=== PATIENT | female | born 1980 | race Caucasian/White ===

== ENCOUNTER 2017-12-17 08:35 | Emergency (ER) | payer MEDICAID ==
[~2017-12-17] VITALS: Ht 154.9 cm; Wt 71.7 kg
[~2017-12-17 08:35] MED LIST: ALMACONE LIQUI355 ML PO; CHLORHEXIDINE; COLACE100 MG PO; DEPAKOTE 250MG250 M1 PO; DEPAKOTE ER500 MG PO; DEPAKOTE500 MG PO; FLONASE 0.05%50 MCG NASAL; IBUPROFEN 800800 M1; IBUPROFEN 800800 M1 PO; LOXAPINE10 MG PO; LOXAPINE5 MG; LOXAPINE5 MG PO; MAXITROL EYE DRO5 ML OTIC; MELADOX3 MG PO; MOBIC15 MG PO; MYLANTA GAS MA125 MG; NEURONTIN 400M400 M2 PO; NORCO 5-325 TA1 EAC1 PO; NORCO 5-325 TA1 EACH PO; POLYMYXIN B/TMP10 ML OPHTHALMIC; SIMVASTATIN20 MG PO; TOPAMAX 100 MG100 MG PO; TOPAMAX50 MG; TOPAMAX50 MG PO; TRAZODONE HCL100 MG PO; TRAZODONE HCL50 MG PO; TYLENOL EX-STR500 M2; TYLENOL EXTRA500 MG PO; ZOCOR20 MG PO; ZOFRAN ODT4 MG PO; ZOFRAN4 MG PO; ZYRTEC10 M5 PO
[2017-12-17 09:24] LABS: ABSOLUTE MONOCYTES 1.8 thou/uL (0.0-1.2); ABSOLUTE NEUTROPHILS 11.8 thou/uL (1.6-8.1); BASOPHILS 0.1 %; HEMATOCRIT 37.7 % (37.0-47.0); HEMOGLOBIN 12.8 gm/dL (12.0-15.0); LYMPHOCYTES 12.8 %; MCH 33.2 pg (26.0-34.0); MCHC 33.9 g/dL (28.0-37.0); MCV 97.8 fL (80.0-100.0); MONOCYTES 11.4 %; MPV 8.5 fl. (7.2-11.1); NUCLEATED RBCS 0 /100WBC; PLATELET COUNT* 231 thou/uL (150-400); POLYS 75.7 %; RBC 3.86 mil/uL (4.20-5.00); RDW-CV 12.9 % (10.5-14.5); WBC 15.5 thou/uL (4.0-11.0)
[2017-12-17 09:32] LABS: ANION GAP 11 mmol/L (7-16); BUN 22 mg/dL (7-18); CALCIUM 8.7 mg/dL (8.5-10.1); CHLORIDE 107 mmol/L (98-107); CO2 22 mmol/L (21-32); GLUCOSE 152 mg/dL (70-99); POTASSIUM 4.4 mmol/L (3.5-5.1); SODIUM 140 mmol/L (136-145)
[2017-12-17 09:35] LABS: URINE BILIRUBIN NEGATIVE (Negative); URINE BLOOD 2+ (Negative); URINE CLARITY SL CLOUDY; URINE COLOR YELLOW; URINE GLUCOSE-RANDOM NEGATIVE (Negative); URINE KETONES TRACE (Negative); URINE LEUKOCYTES-REFLEX NEGATIVE (Negative); URINE NITRITE-REFLEX NEGATIVE (Negative); URINE PROTEIN TRACE (Negative); URINE SPECIFIC GRAVITY 1.015 (1.005-1.030); URINE UROBILINOGEN 0.2 E.U./dl (0.2-1.0)
[2017-12-17 09:39] LABS: ALBUMIN 3.4 g/dL (3.4-5.0); ALKALINE PHOSPHATASE 69 U/L (46-116); LIPASE 73 U/L (73-393); SGOT 18 U/L (15-37); SGPT 24 U/L (30-65); TOTAL BILIRUBIN 0.2 mg/dL (<0.1-1.0); TOTAL PROTEIN 7.2 g/dL (6.4-8.2); TROPONIN-I LEVEL <0.06 ng/mL (<0.06)
[2017-12-17 09:41] LABS: AMORPHOUS PHOSPHATES Moderate /LPF (None Seen); BACTERIA-REFLEX None Seen /HPF (None Seen); CASTS None Seen /LPF (None Seen); SQUAMOUS 0-3 Few /LPF (0-3); URINE WBC-REFLEX 0-5 Rare /HPF (0-5)
[2017-12-17 09:42] LABS: URINE RBC 3-10 Few /HPF (0-2)
[2017-12-17] MEDS ORDERED: CIPROFLOXACIN500 M1 PO (10:38)
[2017-12-17] MEDS ORDERED: NORCO 5-325 TA1 EACH PO (10:38)
[2017-12-17] MEDS ORDERED: FLOMAX0.4 MG PO (10:38)
[2017-12-17] MEDS ORDERED: IBUPROFEN 800800 MG PO (10:38)
[2017-12-17 10:49] VITALS: BP 134/95
== END 2017-12-17 10:52 | disposition home or self-care (01) ==
LOC: M.ERS 08:35
PROVIDERS: Family Medicine
DX: N20.0 Calculus of kidney (principal); F31.9 Bipolar disorder, unspecified; E78.00 Pure hypercholesterolemia, unspecified

== ENCOUNTER → 2017-12-30 | Outpatient (CLI) | payer MEDICAID ==
[~2017-12-30] MED LIST changes: +CIPROFLOXACIN500 M1 PO; +FLOMAX0.4 MG PO; +IBUPROFEN 800800 MG PO
[2017-12-30 10:14] LABS: CHOLESTEROL 155 mg/dL (<200); HDL CHOLESTEROL 43 mg/dL (>40); LDL CHOLESTEROL 92 mg/dL (<100); SERUM ASSESSMENT Clear; TC:HDL 3.6 Ratio (Not establshd); TRIGLYCERIDE 103 mg/dL (<150); VLDL 21 mg/dL (<40)
[2017-12-31 02:07] LABS: GLYCOHEMOGLOBIN (HGB A1C) 5.5 % (4.8-5.6)
== END ==
LOC: M.LAB 09:20
DX: F84.0 Autistic disorder (principal)

== ENCOUNTER → 2018-09-15 | Outpatient (CLI) | payer MEDICAID | LOC: M.LAB 08:50 | DX: E78.5 Hyperlipidemia, unspecified (principal); Z79.899 Other long term (current) drug therapy ==

== ENCOUNTER → 2019-01-25 | Outpatient (CLI) | payer MEDICAID ==
[2019-01-25 09:30] LABS: ABSOLUTE LYMPHOCYTES 2.8 thou/uL (0.8-5.3); ABSOLUTE MONOCYTES 0.7 thou/uL (0.0-1.2); BASOPHILS 0.2 %; EOSINOPHILS 0.2 %; HEMATOCRIT 39.1 % (37.0-47.0); HEMOGLOBIN 13.2 gm/dL (12.0-15.0); LYMPHOCYTES 36.9 %; MCHC 33.7 g/dL (28.0-37.0); MCV 101.1 fL (80.0-100.0); MPV 9.3 fl. (7.2-11.1); NUCLEATED RBCS 0 /100WBC; PLATELET COUNT* 168 thou/uL (150-400); POLYS 52.7 %; RBC 3.87 mil/uL (4.20-5.00); RDW-CV 13.2 % (10.5-14.5); WBC 7.5 thou/uL (4.0-11.0)
[2019-01-25 09:57] LABS: ALBUMIN 3.4 g/dL (3.4-5.0); ALKALINE PHOSPHATASE 67 U/L (46-116); ANION GAP 10 mmol/L (7-16); BUN 29 mg/dL (7-18); CALCIUM 8.6 mg/dL (8.5-10.1); CHLORIDE 108 mmol/L (98-107); CHOLESTEROL 175 mg/dL (<200); CO2 22 mmol/L (21-32); CREATININE 0.6 mg/dL (0.6-1.3); GLUCOSE 101 mg/dL (70-99); HDL CHOLESTEROL 41 mg/dL (>40); LDL CHOLESTEROL 98 mg/dL (<100); POTASSIUM 4.1 mmol/L (3.5-5.1); SGOT 18 U/L (15-37); SGPT 20 U/L (30-65); SODIUM 140 mmol/L (136-145); TC:HDL 4.3 Ratio (Not establshd); TOTAL BILIRUBIN 0.3 mg/dL (<0.1-1.0); TOTAL PROTEIN 7.3 g/dL (6.4-8.2); TRIGLYCERIDE 183 mg/dL (<150); VLDL 37 mg/dL (<40)
[2019-01-25 09:58] LABS: SERUM ASSESSMENT Clear
== END ==
LOC: M.LAB 09:06
DX: Z51.81 Encounter for therapeutic drug level monitoring (principal); Z13.6 Encounter for screening for cardiovascular disorders

== ENCOUNTER 2019-02-17 19:40 | Emergency (ER) | payer MEDICARE, MEDICAID ==
[~2019-02-17] VITALS: Ht 157.5 cm; Wt 64.0 kg
[2019-02-17 20:52] VITALS: BP 104/82
== END 2019-02-17 20:53 | disposition home or self-care (01) ==
LOC: M.ERS 19:40
DX: S61.412A Laceration without foreign body of left hand, initial encounter (principal); F31.9 Bipolar disorder, unspecified; E78.00 Pure hypercholesterolemia, unspecified; M06.9 Rheumatoid arthritis, unspecified; Z87.442 Personal history of urinary calculi; W18.2XXA Fall in (into) shower or empty bathtub, initial encounter; Y92.002 Bathroom of unspecified non-institutional (private) residence as the place of occurrence of the external cause; Y93.E1 Activity, personal bathing and showering; Y99.8 Other external cause status

== ENCOUNTER 2019-04-28 14:28 | Emergency (ER) | payer MEDICARE, MEDICAID ==
[~2019-04-28] VITALS: Ht 160 cm; Wt 63.5 kg
[~2019-04-28 14:28] MED LIST changes: +DEPAKOTE ER500 M1 PO; -DEPAKOTE ER500 MG PO
[2019-04-28 15:14] LABS: URINE BLOOD NEGATIVE (Negative); URINE CLARITY CLEAR; URINE COLOR YELLOW; URINE GLUCOSE-RANDOM NEGATIVE (Negative); URINE KETONES TRACE (Negative); URINE NITRITE-REFLEX NEGATIVE (Negative); URINE PROTEIN 1+ (Negative); URINE SPECIFIC GRAVITY >= 1.030 (1.005-1.030); URINE UROBILINOGEN 0.2 E.U./dl (0.2-1.0)
[2019-04-28 15:18] LABS: ICTOTEST (BILI CONFIRMATORY) Negative (Negative); URINE BILIRUBIN 1+ (Negative); URINE LEUKOCYTES-REFLEX 2+ (Negative)
[2019-04-28 15:30] LABS: AMP/METHAMP Negative (Negative); BARBITURATES Negative (Negative); BENZODIAZEPINES Negative (Negative); COCAINE Negative (Negative); METHADONE Negative (Negative); OPIATES Negative (Negative); PCP Negative (Negative); THC Negative (Negative)
[2019-04-28 15:45] LABS: CRYSTALS None Seen /LPF (None Seen); HYALINE CASTS 0-3 Few /LPF (None Seen); MUCUS 4-6 Moderate strn/LPF (None Seen); SQUAMOUS >10 Many /LPF (0-3)
[2019-04-28 15:46] LABS: ABSOLUTE EOSINOPHILS 0.1 thou/uL (0.0-0.7); ABSOLUTE LYMPHOCYTES 2.7 thou/uL (0.8-5.3); ABSOLUTE MONOCYTES 1.3 thou/uL (0.0-1.2); ABSOLUTE NEUTROPHILS 9.2 thou/uL (1.6-8.1); BASOPHILS 0.3 %; EOSINOPHILS 0.5 %; HEMATOCRIT 36.5 % (37.0-47.0); HEMOGLOBIN 12.4 gm/dL (12.0-15.0); LYMPHOCYTES 19.9 %; MCV 100.2 fL (80.0-100.0); MONOCYTES 9.9 %; MPV 9.2 fl. (7.2-11.1); NUCLEATED RBCS 0 /100WBC; PLATELET COUNT* 187 thou/uL (150-400); POLYS 69.4 %; RBC 3.64 mil/uL (4.20-5.00); RDW-CV 13.2 % (10.5-14.5); WBC 13.3 thou/uL (4.0-11.0)
[2019-04-28 15:46] LABS: URINE RBC None Seen /HPF (0-2); URINE WBC-REFLEX 6-15 Few /HPF (0-5)
[2019-04-28 16:12] LABS: ALCOHOL < 10 mg/dL (<10); CALCIUM 9.6 mg/dL (8.5-10.1); CREATININE 0.7 mg/dL (0.6-1.3); POTASSIUM 4.1 mmol/L (3.5-5.1)
[2019-04-28 16:18] LABS: ALBUMIN 3.4 g/dL (3.4-5.0); TOTAL BILIRUBIN 0.3 mg/dL (<0.1-1.0); TOTAL PROTEIN 7.3 g/dL (6.4-8.2)
[2019-04-28 16:19] LABS: TROPONIN-I LEVEL <0.06 ng/mL (<0.06)
[2019-04-28 16:23] LABS: LITHIUM 1.4 mEq/L (0.6-1.2); VALPROIC ACID (DEPAKENE) 90.7 mcg/mL (50-100)
[2019-04-28] MEDS ORDERED: BIOTENE1000 ML MUCOUS MEM (16:30)
[2019-04-28] MEDS ORDERED: SEROQUEL 50 MG50 MG PO (16:31)
[2019-04-28] MEDS ORDERED: LITHIUM CARBON300 M3 PO (16:33)
[2019-04-28] MEDS ORDERED: ATIVAN1 MG PO (16:33)
[2019-04-28] MEDS ORDERED: SEROQUEL XR 20200 MG PO (16:34)
[2019-04-28] MEDS ORDERED: KEFLEX500 M1 PO (16:40)
[2019-04-28 17:31] VITALS: BP 115/74
--- NOTE | 2019-04-29 17:11 | EKG ---
[place] [address] ELECTROCARDIOGRAM REPORT Name: EVELINA ANAYA Room: [facility]#: [id number] Admission: 04/28/19 Attend Phys: Discharge: 04/28/19 Date of : 84 Report #: [id number] THIS REPORT FOR: //name// [facility] ED Test Date: 2019-04-28 Test Time: 16:16:10 Pat Name: EVELINA DAHLLACIEDom Department: Room: Gender: F Committee Member: : 1980 Requested By: Leta Sparks Order Number: [id number] MD: Russ Seaman Measurements Intervals [place] Rate: 86 P: 54 NE: 177 QRS: 61 QRSD: 70 T: QT: 454 QTc: 543 Interpretive Statements Sinus rhythm Nonspecific T abnormalities, diffuse leads Prolonged QT interval No previous ECG available for comparison Electronically Signed On 04-29-2019 17:11:14 CDT by Russ Seaman [email or web address] <ELECTRONICALLY SIGNED> By: Russ Seaman MD, [facility] 04/29/19 1711 1616 1616 Russ Seaman MD, FAC /EPI
== END 2019-04-28 17:32 | disposition home or self-care (01) ==
LOC: M.ERS 14:28
PROVIDERS: Nurse Practitioner Family
DX: N39.0 Urinary tract infection, site not specified (principal); R41.82 Altered mental status, unspecified; R79.89 Other specified abnormal findings of blood chemistry; F31.9 Bipolar disorder, unspecified; E78.00 Pure hypercholesterolemia, unspecified; M06.9 Rheumatoid arthritis, unspecified; M41.9 Scoliosis, unspecified; Z87.442 Personal history of urinary calculi

== ENCOUNTER → 2019-05-06 | Outpatient (CLI) | payer MEDICARE, MEDICAID ==
[~2019-05-06] MED LIST changes: +ATIVAN1 MG PO; +BIOTENE1000 ML MUCOUS MEM; +KEFLEX500 M1 PO; +LITHIUM CARBON300 M3 PO; +SEROQUEL 50 MG50 MG PO; +SEROQUEL XR 20200 MG PO
[2019-05-06 10:19] LABS: ALBUMIN 3.6 g/dL (3.4-5.0); CALCIUM 9.5 mg/dL (8.5-10.1); CREATININE 0.7 mg/dL (0.6-1.3); POTASSIUM 3.8 mmol/L (3.5-5.1); TOTAL BILIRUBIN 0.3 mg/dL (<0.1-1.0); TOTAL PROTEIN 7.6 g/dL (6.4-8.2)
[2019-05-06 10:58] LABS: LITHIUM 0.7 mEq/L (0.6-1.2); VALPROIC ACID (DEPAKENE) 106.3 mcg/mL (50-100)
== END ==
LOC: M.LAB 09:32
DX: F39 Unspecified mood [affective] disorder (principal); F84.0 Autistic disorder

== ENCOUNTER → 2019-08-20 | Outpatient (CLI) | payer MEDICARE, MEDICAID ==
[~2019-08-20] MED LIST changes: +ALMACONE LIQUI355 ML PER TUBE
== END | disposition home or self-care (01) ==
LOC: M.RAD 08-18 09:00
DX: M51.27 Other intervertebral disc displacement, lumbosacral region (principal); M41.85 Other forms of scoliosis, thoracolumbar region; Z87.442 Personal history of urinary calculi; Z98.890 Other specified postprocedural states; Z79.899 Other long term (current) drug therapy

== ENCOUNTER → 2019-10-05 | Outpatient (CLI) | payer MEDICARE, MEDICAID | LOC: M.LAB 09:20 | DX: F84.0 Autistic disorder (principal); F42.9 Obsessive-compulsive disorder, unspecified; F72 Severe intellectual disabilities ==

== ENCOUNTER → 2020-01-21 | Outpatient (CLI) | payer MEDICARE, MEDICAID ==
[2020-01-21 09:50] LABS: ABSOLUTE LYMPHOCYTES 2.8 thou/uL (0.8-5.3); ABSOLUTE MONOCYTES 0.9 thou/uL (0.0-1.2); ABSOLUTE NEUTROPHILS 4.8 thou/uL (1.6-8.1); BASOPHILS 0.3 %; EOSINOPHILS 0.5 %; HEMATOCRIT 36.9 % (37.0-47.0); HEMOGLOBIN 12.8 gm/dL (12.0-15.0); MCH 34.3 pg (26.0-34.0); MCHC 34.7 g/dL (28.0-37.0); MCV 98.9 fL (80.0-100.0); MONOCYTES 10.2 %; MPV 8.6 fl. (7.2-11.1); NUCLEATED RBCS 0 /100WBC; PLATELET COUNT* 254 thou/uL (150-400); RBC 3.73 mil/uL (4.20-5.00); WBC 8.6 thou/uL (4.0-11.0)
[2020-01-21 10:03] LABS: ALBUMIN 3.5 g/dL (3.4-5.0); ALKALINE PHOSPHATASE 67 U/L (46-116); ANION GAP 7 mmol/L (7-16); BUN 10 mg/dL (7-18); CALCIUM 8.8 mg/dL (8.5-10.1); CHLORIDE 106 mmol/L (98-107); CHOLESTEROL 147 mg/dL (<200); CO2 29 mmol/L (21-32); CREATININE 0.7 mg/dL (0.6-1.3); GLUCOSE 104 mg/dL (70-99); HDL CHOLESTEROL 38 mg/dL (>40); LDL CHOLESTEROL 88 mg/dL (<100); POTASSIUM 4.1 mmol/L (3.5-5.1); SGOT 14 U/L (15-37); SGPT 23 U/L (30-65); SODIUM 142 mmol/L (136-145); TC:HDL 3.9 Ratio (Not establshd); TOTAL BILIRUBIN 0.4 mg/dL (<0.1-1.0); TOTAL PROTEIN 7.7 g/dL (6.4-8.2); TRIGLYCERIDE 105 mg/dL (<150); VLDL 21 mg/dL (<40)
[2020-01-21 10:04] LABS: SERUM ASSESSMENT Clear
[2020-01-21 10:21] LABS: LITHIUM 0.5 mEq/L (0.6-1.2); VALPROIC ACID (DEPAKENE) 94.9 mcg/mL (50-100)
== END ==
LOC: M.LAB 09:25
PROVIDERS: Psychiatry & Neurology Psychiatry
DX: Z51.81 Encounter for therapeutic drug level monitoring (principal); Z13.6 Encounter for screening for cardiovascular disorders

== ENCOUNTER 2020-03-17 19:09 | Emergency (ER) | payer MEDICARE, MEDICAID ==
[~2020-03-17] VITALS: Ht 144.8 cm; Wt 63.5 kg
[2020-03-17 20:40] VITALS: BP 135/89
== END 2020-03-17 20:41 | disposition home or self-care (01) ==
LOC: M.ERS 19:09
DX: S93.491A Sprain of other ligament of right ankle, initial encounter (principal); E78.00 Pure hypercholesterolemia, unspecified; F31.9 Bipolar disorder, unspecified; F84.0 Autistic disorder; Z87.442 Personal history of urinary calculi; W18.39XA Other fall on same level, initial encounter; Y93.89 Activity, other specified; Y92.098 Other place in other non-institutional residence as the place of occurrence of the external cause; Y99.8 Other external cause status

== ENCOUNTER 2020-08-05 20:53 | Emergency (ER) | payer MEDICARE, MEDICAID ==
[~2020-08-05] VITALS: Ht 149.9 cm; Wt 68.0 kg
[2020-08-05] MEDS ORDERED: ATIVAN2 MG PO (21:14)
[2020-08-05 21:44] LABS: URINE BLOOD 3+ (Negative); URINE COLOR ORANGE; URINE GLUCOSE-RANDOM NEGATIVE (Negative); URINE KETONES TRACE (Negative); URINE NITRITE-REFLEX NEGATIVE (Negative); URINE PROTEIN 1+ (Negative); URINE UROBILINOGEN 0.2 E.U./dl (0.2-1.0)
[2020-08-05 21:46] LABS: ICTOTEST (BILI CONFIRMATORY) Negative (Negative); URINE BILIRUBIN 1+ (Negative); URINE CLARITY CLOUDY; URINE LEUKOCYTES-REFLEX 2+ (Negative)
[2020-08-05 21:47] LABS: BACTERIA-REFLEX >30 Many /HPF (None Seen); CASTS None Seen /LPF (None Seen); MUCUS 4-6 Moderate strn/LPF (None Seen); SQUAMOUS 0-3 Few /LPF (0-3); TRANSITIONAL EPITHEL CELL 0-3 Few /LPF (None Seen); URINE RBC >20 Many /HPF (0-2); URINE WBC-REFLEX >25 Many /HPF (0-5); WBC CLUMPS Few (None Seen)
[2020-08-05 21:48] LABS: CRYSTALS None Seen /LPF (None Seen)
[2020-08-05] MEDS ORDERED: MACROBID 100 M100 M1 PO (23:32)
[2020-08-05 23:58] VITALS: BP 140/75
== END 2020-08-05 23:58 | disposition home or self-care (01) ==
LOC: M.ERS 20:53
PROVIDERS: Personal Emergency Response Attendant
DX: N39.0 Urinary tract infection, site not specified (principal); E78.00 Pure hypercholesterolemia, unspecified; M41.9 Scoliosis, unspecified; Z87.442 Personal history of urinary calculi

== ENCOUNTER 2020-10-17 09:22 | Emergency (ER) | payer MEDICARE, MEDICAID ==
[~2020-10-17] VITALS: Ht 157.5 cm; Wt 90.7 kg
[~2020-10-17 09:22] MED LIST changes: +ATIVAN2 MG PO; +MACROBID 100 M100 M1 PO
[2020-10-17] MEDS ORDERED: DEPO-SUBQ104 MG/0.6 IM (09:42)
[2020-10-17 09:48] LABS: ABSOLUTE BASOPHILS 0.1 thou/uL (0.0-0.2); ABSOLUTE LYMPHOCYTES 2.7 thou/uL (0.8-5.3); ABSOLUTE MONOCYTES 1.3 thou/uL (0.0-1.2); ABSOLUTE NEUTROPHILS 7.3 thou/uL (1.6-8.1); BASOPHILS 0.6 %; HEMATOCRIT 38.6 % (37.0-47.0); HEMOGLOBIN 13.1 gm/dL (12.0-15.0); LYMPHOCYTES 23.8 %; MCH 33.3 pg (26.0-34.0); MCHC 33.9 g/dL (28.0-37.0); MCV 98.5 fL (80.0-100.0); MONOCYTES 11.4 %; MPV 8.4 fl. (7.2-11.1); NUCLEATED RBCS 0 /100WBC; PLATELET COUNT* 231 thou/uL (150-400); POLYS 64.2 %; RBC 3.92 mil/uL (4.20-5.00); WBC 11.4 thou/uL (4.0-11.0)
[2020-10-17 09:56] LABS: CALCIUM 9.2 mg/dL (8.5-10.1); CREATININE 0.8 mg/dL (0.6-1.3); POTASSIUM 3.8 mmol/L (3.5-5.1)
[2020-10-17 10:00] LABS: ALBUMIN 3.5 g/dL (3.4-5.0); TOTAL BILIRUBIN 0.4 mg/dL (<0.1-1.0)
[2020-10-17] MEDS ORDERED: PROVERA10 MG PO (10:11)
[2020-10-17 10:22] VITALS: BP 151/71
== END 2020-10-17 10:23 | disposition home or self-care (01) ==
LOC: M.ERS 09:22
PROVIDERS: Family Medicine
DX: N93.8 Other specified abnormal uterine and vaginal bleeding (principal); E78.00 Pure hypercholesterolemia, unspecified; Z87.442 Personal history of urinary calculi; Z79.899 Other long term (current) drug therapy

== ENCOUNTER 2020-10-21 16:12 | Emergency (ER) | payer MEDICARE, MEDICAID ==
[~2020-10-21] VITALS: Ht 144.8 cm; Wt 63.5 kg
[~2020-10-21 16:12] MED LIST changes: +DEPO-SUBQ104 MG/0.6 IM; +PROVERA10 MG PO
[2020-10-21 16:43] LABS: URINE BILIRUBIN NEGATIVE (Negative); URINE BLOOD 2+ (Negative); URINE CLARITY SL CLOUDY; URINE COLOR YELLOW; URINE GLUCOSE-RANDOM NEGATIVE (Negative); URINE KETONES NEGATIVE (Negative); URINE LEUKOCYTES-REFLEX NEGATIVE (Negative); URINE NITRITE-REFLEX NEGATIVE (Negative); URINE PROTEIN NEGATIVE (Negative); URINE UROBILINOGEN 0.2 E.U./dl (0.2-1.0)
[2020-10-21 16:49] LABS: MUCUS 0-3 Light strn/LPF (None Seen); SQUAMOUS >10 Many /LPF (0-3)
[2020-10-21 16:50] LABS: BACTERIA-REFLEX >30 Many /HPF (None Seen); CASTS None Seen /LPF (None Seen); CRYSTALS None Seen /LPF (None Seen); URINE RBC 3-10 Few /HPF (0-2)
[2020-10-21 16:51] LABS: URINE WBC-REFLEX 0-5 Rare /HPF (0-5)
[2020-10-21] MEDS ORDERED: KEFLEX500 M1 PO (16:58)
[2020-10-21 17:06] VITALS: BP 103/77
== END 2020-10-21 17:11 | disposition home or self-care (01) ==
LOC: M.ERS 16:12
PROVIDERS: Emergency Medicine Emergency Medical Services
DX: N39.0 Urinary tract infection, site not specified (principal); E78.00 Pure hypercholesterolemia, unspecified; Z87.442 Personal history of urinary calculi; Z79.899 Other long term (current) drug therapy

== ENCOUNTER → 2021-01-01 | Outpatient (CLI) | payer MEDICARE, MEDICAID | LOC: M.LAB 09:26 | PROVIDERS: ATTEND Podiatrist Foot Surgery | DX: Z01.812 Encounter for preprocedural laboratory examination (principal); Z20.822 Contact with and (suspected) exposure to COVID-19 ==

== ENCOUNTER 2021-01-07 10:59 | Emergency (ER) | payer MEDICARE, MEDICAID ==
[~2021-01-07] VITALS: Ht 144.8 cm; Wt 65.8 kg
[2021-01-07] MEDS ORDERED: ALMACONE-2 LIQ355 ML PO (11:19)
[2021-01-07] MEDS ORDERED: FLONASE 0.05%50 MCG NARES (11:19)
[2021-01-07 11:23] LABS: URINE BILIRUBIN NEGATIVE (Negative); URINE BLOOD NEGATIVE (Negative); URINE CLARITY CLEAR; URINE COLOR YELLOW; URINE GLUCOSE-RANDOM NEGATIVE (Negative); URINE KETONES NEGATIVE (Negative); URINE LEUKOCYTES-REFLEX NEGATIVE (Negative); URINE NITRITE-REFLEX NEGATIVE (Negative); URINE PROTEIN NEGATIVE (Negative); URINE UROBILINOGEN 0.2 E.U./dl (0.2-1.0)
[2021-01-07 11:52] LABS: ABSOLUTE LYMPHOCYTES 2.9 thou/uL (0.8-5.3); ABSOLUTE MONOCYTES 1.1 thou/uL (0.0-1.2); ABSOLUTE NEUTROPHILS 5.6 thou/uL (1.6-8.1); BASOPHILS 0.2 %; EOSINOPHILS 0.1 %; HEMOGLOBIN 12.8 gm/dL (12.0-15.0); LYMPHOCYTES 30.4 %; MCH 33.5 pg (26.0-34.0); MCHC 33.6 g/dL (28.0-37.0); MCV 99.9 fL (80.0-100.0); MONOCYTES 11.6 %; MPV 9.1 fl. (7.2-11.1); NUCLEATED RBCS 0 /100WBC; PLATELET COUNT* 234 thou/uL (150-400); POLYS 57.7 %; WBC 9.6 thou/uL (4.0-11.0)
[2021-01-07 12:02] LABS: CALCIUM 9.6 mg/dL (8.5-10.1); CREATININE 0.7 mg/dL (0.6-1.3); POTASSIUM 4.1 mmol/L (3.5-5.1)
[2021-01-07 12:12] LABS: ALBUMIN 3.5 g/dL (3.4-5.0); TOTAL BILIRUBIN 0.2 mg/dL (<0.1-1.0); TOTAL PROTEIN 7.3 g/dL (6.4-8.2)
[2021-01-07 12:33] VITALS: BP 129/75
== END 2021-01-07 12:33 | disposition home or self-care (01) ==
LOC: M.ERS 10:59
PROVIDERS: Emergency Medicine Emergency Medical Services
DX: R35.0 Frequency of micturition (principal); E78.00 Pure hypercholesterolemia, unspecified; M41.9 Scoliosis, unspecified; Z87.442 Personal history of urinary calculi

== ENCOUNTER → 2021-01-15 | Outpatient (CLI) | payer MEDICARE, MEDICAID ==
[~2021-01-15] MED LIST changes: +ALMACONE-2 LIQ355 ML PO; +FLONASE 0.05%50 MCG NARES
[2021-01-15 11:37] LABS: ABSOLUTE MONOCYTES 1.5 thou/uL (0.0-1.2); ABSOLUTE NEUTROPHILS 9.6 thou/uL (1.6-8.1); BASOPHILS 0.1 %; HEMATOCRIT 38.9 % (37.0-47.0); HEMOGLOBIN 12.9 gm/dL (12.0-15.0); LYMPHOCYTES 21.2 %; MCH 33.2 pg (26.0-34.0); MCHC 33.1 g/dL (28.0-37.0); MCV 100.3 fL (80.0-100.0); MONOCYTES 10.3 %; MPV 9.1 fl. (7.2-11.1); NUCLEATED RBCS 0 /100WBC; PLATELET COUNT* 278 thou/uL (150-400); POLYS 68.4 %; RBC 3.87 mil/uL (4.20-5.00); RDW-CV 13.2 % (10.5-14.5); WBC 14.1 thou/uL (4.0-11.0)
[2021-01-15 11:40] LABS: CALCIUM 9.7 mg/dL (8.5-10.1); CREATININE 0.8 mg/dL (0.6-1.3); POTASSIUM 4.3 mmol/L (3.5-5.1)
== END ==
LOC: M.LAB 11:07
DX: F84.0 Autistic disorder (principal); F31.9 Bipolar disorder, unspecified

== ENCOUNTER 2021-01-30 11:52 | Emergency (ER) | payer MEDICARE, MEDICAID ==
[~2021-01-30] VITALS: Ht 144.8 cm; Wt 65.8 kg
[2021-01-30 12:10] LABS: ABSOLUTE LYMPHOCYTES 2.1 thou/uL (0.8-5.3); ABSOLUTE MONOCYTES 0.9 thou/uL (0.0-1.2); ABSOLUTE NEUTROPHILS 4.8 thou/uL (1.6-8.1); BASOPHILS 0.3 %; HEMATOCRIT 36.9 % (37.0-47.0); HEMOGLOBIN 12.4 gm/dL (12.0-15.0); LYMPHOCYTES 26.5 %; MCHC 33.8 g/dL (28.0-37.0); MCV 100.8 fL (80.0-100.0); MONOCYTES 11.6 %; NUCLEATED RBCS 0 /100WBC; PLATELET COUNT* 203 thou/uL (150-400); POLYS 61.6 %; RBC 3.66 mil/uL (4.20-5.00); RDW-CV 13.4 % (10.5-14.5); WBC 7.8 thou/uL (4.0-11.0)
[2021-01-30 12:18] LABS: CREATININE 0.7 mg/dL (0.6-1.3); POTASSIUM 4.1 mmol/L (3.5-5.1)
[2021-01-30 12:18] LABS: URINE BILIRUBIN NEGATIVE (Negative); URINE BLOOD TRACE (Negative); URINE CLARITY CLEAR; URINE COLOR YELLOW; URINE GLUCOSE-RANDOM NEGATIVE (Negative); URINE KETONES NEGATIVE (Negative); URINE LEUKOCYTES-REFLEX NEGATIVE (Negative); URINE NITRITE-REFLEX NEGATIVE (Negative); URINE PROTEIN NEGATIVE (Negative); URINE UROBILINOGEN 0.2 E.U./dl (0.2-1.0)
[2021-01-30 12:23] LABS: AMP/METHAMP Negative (Negative); BARBITURATES Negative (Negative); BENZODIAZEPINES Negative (Negative); COCAINE Negative (Negative); METHADONE Negative (Negative); OPIATES Negative (Negative); PCP Negative (Negative); THC Negative (Negative)
[2021-01-30 12:23] LABS: ALBUMIN 3.4 g/dL (3.4-5.0); TOTAL BILIRUBIN 0.3 mg/dL (<0.1-1.0); TOTAL PROTEIN 7.3 g/dL (6.4-8.2)
[2021-01-30 12:37] LABS: SALICYLATE < 2.8 mg/dL (2.8-20.0)
[2021-01-30 12:38] LABS: ACETAMINOPHEN < 2 ug/mL (10-30); ALCOHOL < 10 mg/dL (<10)
[2021-01-30] MEDS ORDERED: GEODON20 MG PO (15:10)
[2021-01-30] MEDS ORDERED: ATIVAN1 M1 PO (15:10)
[2021-01-30 15:33] VITALS: BP 131/63
== END 2021-01-30 15:35 | disposition home or self-care (01) ==
LOC: M.ERS 11:52
PROVIDERS: Nurse Practitioner Family
DX: F63.81 Intermittent explosive disorder (principal); E78.00 Pure hypercholesterolemia, unspecified; M41.9 Scoliosis, unspecified; Z87.442 Personal history of urinary calculi

== ENCOUNTER → 2021-03-26 | Outpatient (CLI) | payer MEDICARE, MEDICAID ==
[~2021-03-26] MED LIST changes: +ATIVAN1 M1 PO; +GEODON20 MG PO
[2021-03-26 08:18] LABS: CALCIUM 9.2 mg/dL (8.5-10.1); CREATININE 0.5 mg/dL (0.6-1.3); MAGNESIUM 2.2 mg/dL (1.8-2.4); POTASSIUM 3.9 mmol/L (3.5-5.1)
== END ==
LOC: M.LAB 07:50
PROVIDERS: ATTEND Internal Medicine Critical Care Medicine
DX: R60.0 Localized edema (principal)

== ENCOUNTER 2021-07-04 12:10 | Inpatient (IN) | payer MEDICARE, MEDICAID ==
[~2021-07-04] VITALS: Ht 149.9 cm; Wt 49.4 kg
[2021-07-04 12:40] VITALS: BP 125/97
[2021-07-04 13:08] LABS: URINE BILIRUBIN NEGATIVE (Negative); URINE BLOOD NEGATIVE (Negative); URINE CLARITY CLEAR; URINE COLOR YELLOW; URINE GLUCOSE-RANDOM NEGATIVE (Negative); URINE KETONES NEGATIVE (Negative); URINE NITRITE-REFLEX NEGATIVE (Negative); URINE PROTEIN NEGATIVE (Negative)
[2021-07-04 13:09] LABS: URINE LEUKOCYTES-REFLEX 2+ (Negative)
[2021-07-04] MEDS ORDERED: SEROQUEL 50 MG50 M1 PO (13:09)
[2021-07-04] MEDS ORDERED: BENZTROPINE MES1 MG PO (13:10)
[2021-07-04] MEDS ORDERED: LITHIUM CARBON300 M6 PO (13:11)
[2021-07-04] MEDS ORDERED: LAMOTRIGINE250 MG PO (13:12)
[2021-07-04] MEDS ORDERED: LOPERAMIDE 2 MG2 M1 PO (13:13)
[2021-07-04] MEDS ORDERED: FAMOTIDINE 20 M20 MG PO (13:14)
[2021-07-04 13:15] LABS: BACTERIA-REFLEX 1-9 Few /HPF (None Seen); CASTS None Seen /LPF (None Seen); CRYSTALS None Seen /LPF (None Seen); MUCUS None Seen strn/LPF (None Seen); SQUAMOUS 4-10 Moderate /LPF (0-3); URINE RBC 0-2 Rare /HPF (0-2); URINE WBC-REFLEX 6-15 Few /HPF (0-5)
[2021-07-04 13:51] LABS: ABSOLUTE BASOPHILS 0.1 thou/uL (0.0-0.2); ABSOLUTE EOSINOPHILS 0.2 thou/uL (0.0-0.7); ABSOLUTE LYMPHOCYTES 2.6 thou/uL (0.8-5.3); ABSOLUTE MONOCYTES 1.2 thou/uL (0.0-1.2); ABSOLUTE NEUTROPHILS 10.6 thou/uL (1.6-8.1); BASOPHILS 0.6 %; EOSINOPHILS 1.2 %; HEMATOCRIT 38.9 % (37.0-47.0); HEMOGLOBIN 12.3 gm/dL (12.0-15.0); LYMPHOCYTES 17.6 %; MCH 32.6 pg (26.0-34.0); MCHC 31.5 g/dL (28.0-37.0); MCV 103.4 fL (80.0-100.0); MPV 10.2 fl. (7.2-11.1); NUCLEATED RBCS 0 /100WBC; PLATELET COUNT* 229 thou/uL (150-400); POLYS 72.6 %; RBC 3.76 mil/uL (4.20-5.00); RDW-CV 14.3 % (10.5-14.5); WBC 14.6 thou/uL (4.0-11.0)
[2021-07-04 13:59] LABS: CALCIUM 9.6 mg/dL (8.5-10.1); CREATININE 0.9 mg/dL (0.6-1.3); POTASSIUM 3.6 mmol/L (3.5-5.1)
[2021-07-04 14:09] LABS: TOTAL BILIRUBIN 0.2 mg/dL (<0.1-1.0); TOTAL PROTEIN 6.4 g/dL (6.4-8.2)
--- NOTE | 2021-07-04 14:16 | EKG ---
[place] [address] ELECTROCARDIOGRAM REPORT Name: EVELINA ANAYA Room: [facility]#: [id number] Admission: 07/04/21 Attend Phys: Discharge: Date of : 84 Date of Service: 07/04/21 1407 Report #: [id number] THIS REPORT FOR: //name// [facility] ED Test Date: 2021-07-04 Test Time: 14:07:41 Pat Name: EVELINA ANAYA Department: Room: Gender: F Archives Specialist: : 1980 Requested By: Leta Sparks Order Number: [id number] MD: Hair Joseph Measurements Intervals [place] Rate: 85 P: 0 [place]: QRS: 63 QRSD: 64 T: 243 QT: 440 QTc: 524 Interpretive Statements sinus or ectopic atrial rhythm Nonspecific T abnormalities, diffuse leads Prolonged QT interval Compared to ECG 04/28/2019 16:16:10 Sinus rhythm no longer present T-wave abnormality still present Electronically Signed On 07-04-2021 14:16:02 CDT by Hair Joseph [email or web address] <ELECTRONICALLY SIGNED> By: Hair Joseph MD, [facility] 07/04/21 1416 1407 1407 Hair Joseph MD, [facility] /EPI
--- NOTE | 2021-07-04 18:30 | NUR ---
LOAD OUT PERSON- VALERIA BLAS: [phone] DAD: DEBORAH- [phone]
[2021-07-04 20:56] VITALS: BP 135/85
[2021-07-04 22:40] LABS: URINE POTASSIUM-RANDOM 12.1 mmol/L
[2021-07-05] VITALS (8 sets, daily range): BP systolic 98–129; BP diastolic 64–82
[2021-07-05 07:37] LABS: ABSOLUTE EOSINOPHILS 0.3 thou/uL (0.0-0.7); ABSOLUTE MONOCYTES 1.1 thou/uL (0.0-1.2); BASOPHILS 0.2 %; EOSINOPHILS 2.7 %; HEMATOCRIT 37.3 % (37.0-47.0); LYMPHOCYTES 29.1 %; MCH 33.1 pg (26.0-34.0); MCHC 32.1 g/dL (28.0-37.0); MCV 103.1 fL (80.0-100.0); MONOCYTES 10.9 %; MPV 9.6 fl. (7.2-11.1); NUCLEATED RBCS 0 /100WBC; PLATELET COUNT* 218 thou/uL (150-400); POLYS 57.1 %; RBC 3.62 mil/uL (4.20-5.00); RDW-CV 13.8 % (10.5-14.5); WBC 10.5 thou/uL (4.0-11.0)
[2021-07-05 07:39] LABS: CALCIUM 9.3 mg/dL (8.5-10.1); CREATININE 0.7 mg/dL (0.6-1.3); POTASSIUM 3.7 mmol/L (3.5-5.1)
[2021-07-06] VITALS: BP 113/71
[2021-07-06 04:00] VITALS: BP 92/67
[2021-07-06 04:19] LABS: CALCIUM 8.7 mg/dL (8.5-10.1); CREATININE 0.8 mg/dL (0.6-1.3); POTASSIUM 3.9 mmol/L (3.5-5.1)
--- NOTE | 2021-07-06 05:48 | NUR ---
ASSUMED PT CARE AT APPROX 1930. PT IS AWAKE, ORIENTED TO SELF, ABLE TO ANSWER YES AND NO QUESTION AND IS ABLE TO MAKE BASIC NEEDS KNOWN. PT IS NOT IN DISTRESS, NO DESATURATIONS NOTED ON ROOM AIR. PT IS TRACING SR ON THE MEDICAL TECHNOLOGIST GENERALIST. PT DENIES PAIN/DISCOMFORT. NO ACUTE CHANGES THIS SHIFT. CALL LIGHT WITHIN REACH. HOURLY ROUNDING DONE FOR PT SAFETY. HIGH FALL PRECAUTIONS IN PLACE.
[2021-07-06 07:00] VITALS: BP 105/68
--- NOTE | 2021-07-06 10:06 | CON ---
[address] [address] CONSULTATION Name: EVELINA ANAYA Room: [address] IN M.R.#: [id number] Admission: 07/04/21 Attend Phys: Danny May MD Discharge: Date of : 84 Report #: [id number] THIS REPORT FOR: cc: Laura Lozada NP, Elizabeth NP Khan, Abid R. MD ~ DATE OF CONSULTATION: 07/05/2021 NEPHROLOGY CONSULTATION REFERRING PHYSICIAN: Dr. May. REASON FOR CONSULTATION: Hypernatremia. HISTORY OF PRESENT ILLNESS: This is a 40-year-old female who was admitted with altered mental status, poor oral intake, has an underlying history of bipolar disorder and mental retardation. She resides in a intermediate. She currently is nonverbal and very somnolent for me and is unable to give me any meaningful history. History is largely obtained through chart review. Sodium on admission was 154. REVIEW OF SYSTEMS: Constitutional, psych, heme, eyes, ENT, respiratory, cardiac, GI, , endocrine, all negative except as documented above and as best as could be ascertained. PAST MEDICAL HISTORY: Bipolar disorder, mental retardation, dyslipidemia, autism, history of kidney stones. FAMILY HISTORY: Not pertinent in this 40-year-old female. SOCIAL HISTORY: No tobacco. Lives in a intermediate. CURRENT MEDICATIONS: Reviewed. PHYSICAL EXAMINATION: VITAL SIGNS: Blood pressure is 98/64, pulse 65, respirations 13, temperature 36.1. GENERAL: On examination, she is in no acute distress. HEENT: Eyes are closed. Ears are externally normal. CARDIOVASCULAR: Regular rate. LUNGS: With crackles. ABDOMEN: Soft. MUSCULOSKELETAL: Nontender. PSYCHIATRIC: Somnolent[place] [address] CONSULTATION Name: EVELINA ANAYA Room: [address]#: [id number] Admission: 07/04/21 Attend Phys: Danny May MD Discharge: Date of : 84 Report #: [id number] LABORATORY DATA: White cell count 10.5, hemoglobin 12, platelets 218. Sodium 154, potassium 3.7, chloride 117, bicarbonate 31, BUN 13, creatinine 0.7, calcium 9.3. [place] level was 1.3. ASSESSMENT: 1. Hypernatremia in the setting of lithium use. Admission sodium was 158, specific gravity was 1.010 On 03/26/2021, sodium was 143. 2. Bipolar disorder. 3. Autism. 4. Mental retardation. 5. Urinary tract infection. PLAN: Antibiotics per internal medicine. Sodium is coming down. We will change fluids to D5W. Urine osmolality has been ordered. 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 Monitor I's and O's. Case discussed with bedside nurse. Thank you for requesting my opinion in the care and management of this patient. <ELECTRONICALLY SIGNED> By: Devonte Waters MD 07/06/21 1006 1433 1917Adhaval Waters MD /nt
[2021-07-06 12:00] VITALS: BP 102/53
--- NOTE | 2021-07-06 14:21 | NUR ---
Cm spoke with Pt's father at bedside. Pt has . Resides at [facility] with 24 hour/day caregivers. Pt was independent up until a short time ago. Pt was independent with ADLs. No DME. Pt can normally communicate, but her conversation does not make since. Dad is concerned that Pt is having a reaction to her medications. Sodium was elevated. Confused. Held lithium. Nephro signed off. Anticipate dc in 1-2 days back to [facility].
[2021-07-06 16:00] VITALS: BP 98/64
--- NOTE | 2021-07-06 18:44 | NUR ---
ALERT TO PERSON. STATED SHE HAD TO PEEP THIS AM AND WAS PUT ON BEDPAN. INCONT. THIS AFTERNOON. PT IS FEEDER, UNABLE TO FEED SELF. FATHER AT BEDSIDE THIS AM AND THIS AFTERNOON. PT ATE BREAKFAST AND SMALL AMOUNT OF LUNCH. SLEEPING THROUGH DINNER, UNABLE TO WAKE. FATHER WOULD LIKE PT TO BE TAKEN OFF ALL HER MEDICATIONS AND PUT BACK ON THEM SLOWLY. WANTS TO KNOW WHAT IS CAUSING DAUGHTER TO SLEEP ALL THE TIME. FEELS IT'S THEM MEDICATION. DR. HASTINGS INFORMED OF THIS. NEURO CONSULT CAN NOT BE DONE WE DON'T HAVE ANY NEURO CHIEF LEGAL OFFICER FOR TODAY OR TOMORROW. IF NEEDED WOULD HAVE TO TRANSFER PT OUT. DR. HASTINGS INFORMED. WILL JUST SEE HOW PT PROGRESSES SHE WAS MORE AWAKE TODAY THAN YESTERDAY. IF RIGHT FA INTACT AND PATENT. D5W INFUSING AT 70MLS/HR. WILL CONTINUE TO MONITOR.
[2021-07-07 00:25] VITALS: BP 127/69
[2021-07-07 04:09] VITALS: BP 107/66
[2021-07-07 04:26] LABS: HEMATOCRIT 36.3 % (37.0-47.0); HEMOGLOBIN 11.6 gm/dL (12.0-15.0); MCH 33.2 pg (26.0-34.0); MCV 103.6 fL (80.0-100.0); RBC 3.5 mil/uL (4.20-5.00); RDW-CV 13.9 % (10.5-14.5); WBC 8.9 thou/uL (4.0-11.0)
[2021-07-07 04:46] LABS: CREATININE 0.7 mg/dL (0.6-1.3); POTASSIUM 3.9 mmol/L (3.5-5.1)
[2021-07-07 07:50] VITALS: BP 120/78
[2021-07-07 15:08] VITALS: BP 101/69
--- NOTE | 2021-07-07 16:52 | NUR ---
ASSUMED CARE OF PT AT 0730. PT A&0X1, YELLS OUT, DOESNT FOLLOW COMMANDS. PT FATHER AT BEDSIDE MOST OF SHIFT AND UPDATED ON CURRENT PLAN OF CARE. PT DOES NOT APPEAR TO BE IN ANY PAIN OR SHORT OF BREATH. TRACING SR ON THE LIBRARY SALES CONSULTANT. ON RA SAT UPPER 90'S. PT INCONT OF BOWEL AND BLADDER. IVF. PT IS A FEEDER-GOOD APPETITE. AM ASSESSMENT CHARTED. MEDICATIONS PER MAR CRUSHED IN APPLESAUCE. HOURLY ROUNDING OBSERVED. PT REPOSITIONED EVERY 2 HOURS FOR COMFORT. HOURLY ROUNDING OBSERVED. BED IN LOW POSITION. BED ALARM IN PLACE. FALL PRECAUTIONS IN PLACE. CALL LIGHT WITHIN REACH. WILL CONTINUE PLAN OF CARE.
[2021-07-07 19:29] VITALS: BP 105/63
[2021-07-08 08:00] VITALS: BP 105/80
[2021-07-08 12:00] VITALS: BP 112/64
[2021-07-08 18:16] VITALS: BP 121/70
--- NOTE | 2021-07-08 18:49 | NUR ---
PT CONTINUES TO BE RESTING ON HER BED. PT'S DAD STATES SHE WAS WALKING, TAKING SELF TO THE BATHROOM AND FEEDING SELF. PT HAS NOT BEEN ABLE TO DO ANY OF THESE THINGS SINCE ADMISSION. VSS AFEBRILE. WILL CONTINUE TO MONITOR PLAN OF CARE.
[2021-07-08 20:06] VITALS: BP 114/49
[2021-07-08 23:47] VITALS: BP 111/66
[2021-07-09 03:37] VITALS: BP 112/64
--- NOTE | 2021-07-09 07:15 | NUR ---
CHANGE OF SHIFT BEDSIDE REPORT GIVEN PATIENT SEEN AT BEDSIDE, IN BED RESTING ASSUMED PATIENT CARE
[2021-07-09 07:48] LABS: HEMATOCRIT 38.1 % (37.0-47.0); MCH 32.6 pg (26.0-34.0); MCHC 31.6 g/dL (28.0-37.0); MCV 103.3 fL (80.0-100.0); MPV 9.5 fl. (7.2-11.1); RBC 3.69 mil/uL (4.20-5.00); RDW-CV 14.1 % (10.5-14.5); WBC 6.9 thou/uL (4.0-11.0)
[2021-07-09 07:55] LABS: CREATININE 0.6 mg/dL (0.6-1.3); POTASSIUM 3.5 mmol/L (3.5-5.1)
[2021-07-09 08:00] VITALS: BP 109/89
--- NOTE | 2021-07-09 12:39 | NUR ---
Therapies to see. Pt not ambulating, was independent prior to this hospital stay. CM uncertain if Pt can follow directions for skilled, requesting that PT see Pt again today. CM to discuss with parents once complete. Pt more animated today, per mom, that is Pt's baseline. Tele psych consult for med mgmt. MRI today. Shonna (mom) [phone]
[2021-07-09 20:04] VITALS: BP 95/62
[2021-07-10] VITALS (7 sets, daily range): BP systolic 105–134; BP diastolic 52–81
[2021-07-10 04:13] LABS: HEMATOCRIT 37.8 % (37.0-47.0); HEMOGLOBIN 12.3 gm/dL (12.0-15.0); MCH 33.3 pg (26.0-34.0); MCHC 32.6 g/dL (28.0-37.0); MCV 102.4 fL (80.0-100.0); MPV 9.9 fl. (7.2-11.1); RBC 3.69 mil/uL (4.20-5.00); WBC 8.6 thou/uL (4.0-11.0)
[2021-07-10 04:31] LABS: CALCIUM 9.3 mg/dL (8.5-10.1); CREATININE 0.6 mg/dL (0.6-1.3); POTASSIUM 3.2 mmol/L (3.5-5.1)
--- NOTE | 2021-07-10 06:19 | NUR ---
PT AWAKE, ALERT, VSS ON ROOM AIR. IV SALINE LOCKED. PT REPOSITIONED Q2H, REPOSITIONS SELF. SR ON TELE MONITOR. PT RESTING IN BED, SHORT PERIODS OF SLEEP THROUGHOUT NIGHT. WILL CONTINUE TO MONITOR.
--- NOTE | 2021-07-10 13:52 | NUR ---
[facility] declined. CM updated Pt's dad, informed of plan for SNF. CM faxed referral to [facility]declined [place]declined [facility] CM to continue faxing referrals. CM started Level 2 screening, CM to email it to [facility] by the end of the day. Await screening and SNF placement.
--- NOTE | 2021-07-10 18:13 | NUR ---
PT ALERT AND ORIENTED TO SELF ONLY. PT IS NOT SHOWING ANY SIGNS OF PAIN, SHE IS EATING AND DRINKING WITH STAFF ASSISTANCE. PT FATHER AT BEDSIDE HELPED WITH BREAKFAST. SPEECH EVALUATED PT, SHE CONTINUES [facility] SOFT DIET WITH THIN LIQUIDS. WENT FOR MRI WAS GIVEN ONE TIME DOSE OF PRN LORAZEPAM TO HELP WITH ANXIETY
[2021-07-11] VITALS (7 sets, daily range): BP systolic 94–121; BP diastolic 62–79
--- NOTE | 2021-07-11 06:25 | NUR ---
PT WITH AUTISM, MR YELLS OUT FREQUENTLY FOR VARIOUS THINGS WHILE AWAKE. RAC SL IV. USING BED HAGEN FOR BM OVERNIGHT, INCONT URINE AND USED BEDPAN. TAKING PILLS CRUSHED WITH PUDDING. PT NEEDS ASSIST WITH MEALS. BEDREST. TELE SR. AO TO SELF, SITUATION,FORGETFUL, IMPULSIVE AT TIMES. LORAZEPAM PO PRN GIVEN ONCE AT HS WITH FAIR RESULT.
--- NOTE | 2021-07-11 12:34 | NUR ---
PATIENT FOUND ON FLOOR BY SERVICE STATION EQUIPMENT MECHANIC SATTARUS. FATHER NOT IN THE ROOM BED ALARM WAS NOT RESET AFTER HER FATHER GOT HER UP TO WALK. STAFF WAS NOT INFORMED THAT DAD WAS LEAVING. PATIENT PLACED BACK IN BED. NO BRUISES OR CUTS NOTED. DR. GRIGGS NOTIFIED. WILL CONTINUE TO MONITOR.
--- NOTE | 2021-07-11 13:09 | NUR ---
[facility] reassessed Pt, continue to believe that she is unable to follow commands long enough to complete 3 hrs/day of therapy. Plan SNF. [facility] declined Pt. [facility] liaison to come and complete onsite tomorrow. Await [facility] decision. Continue therapies.
--- NOTE | 2021-07-11 14:27 | NUR ---
Nutrition: Pt admitted with UTI. PMHx: MR. Assessed for LOS. Shara ddiet ordered. Ate 100% yday. Usual wt: ~140#. Wt at admit 130#, today wt is recorded as 109# - RD quesitoning accuracy. Please reweigh pt for accuracy. Albumin 3. Otherwise, no nutrition concerns at this time. Low risk. PLEASE REWEIGH PATIENT.
--- NOTE | 2021-07-11 18:25 | NUR ---
PATIENT RESTING IN BED. DAD AT BEDSIDE INVOLVED WITH CARES. INCONTINENT AT TIME. ALERT AND ORIENTED X2. AUTISIC SPECTRUM. BED IN LOW/LOCKED POSITION. BED ALARM. NO QUESTIONS OR CONCERNS VOICED.
--- NOTE | 2021-07-12 04:55 | NUR ---
PT AWAKE MOST OF SHIFT. ASSESSMENT DOCUMENTED. MEDS GIVEN PER E-MAR. IV PATENT. NO REPORTS OF PAIN. PT YELLING OUT MOST OF SHIFT, BUT IS ABLE TO MAKE NEEDS KNOWN. FALL PRECAUTIONS IN PLACE. WILL CONTINUE WITH PLAN OF CARE.
[2021-07-12 08:00] VITALS: BP 126/725
--- NOTE | 2021-07-12 10:25 | NUR ---
Lianna, liaison for [facility] to complete onsite today. Per Lianna, Level 2 screenings are offering waivers, once she is able to match Pt with a facility, she may be able to push the Level 2 through. CM following.
[2021-07-12 16:00] VITALS: BP 111/65
[2021-07-12 21:00] VITALS: BP 99/71
[2021-07-13 00:18] VITALS: BP 100/70
[2021-07-13 04:17] LABS: CALCIUM 8.7 mg/dL (8.5-10.1); CREATININE 0.7 mg/dL (0.6-1.3)
--- NOTE | 2021-07-13 05:48 | NUR ---
Patient has been mostly cooperative. She is impulsive and sets off her bed alarm.She is assist x 1 to wal to the bathroom. She has voided alot this shift, she uses brief for stress incontinence. She as taken all meds crushed in applesauce. She drinks a lot of soda. She did sleep well.
--- NOTE | 2021-07-13 05:54 | NUR ---
Continuation of the note. She pulled out her IV this morning but she isn't etting anything IV.
[2021-07-13 08:00] VITALS: BP 129/84
--- NOTE | 2021-07-13 13:44 | NUR ---
Pt discharging to [facility] today. Ambulance to flower buncher or picker and transport at 3pm. Faxed dc orders. Chart copied. Nurse report number is [phone] ext [phone]. Updated Pt's father. CM faxed Level 2 referral to Lianna at [facility].
[2021-07-13 21:05] LABS: ANA INTERPRETATION Negative (())
== END 2021-07-13 15:25 | DRG 698 ==
LOC: M.ERS 12:10 → M.2W 17:25 → M.TBA-ER 17:25 → M.2W 07-05 16:24
PROVIDERS: Family Medicine; Internal Medicine; Internal Medicine Nephrology; Nurse Practitioner Family; Psychiatry & Neurology Neuromuscular Medicine; ADMIT Internal Medicine; ATTEND Internal Medicine
DX: N25.1 Nephrogenic diabetes insipidus (principal); R65.11 Systemic inflammatory response syndrome (SIRS) of non-infectious origin with acute organ dysfunction; G93.41 Metabolic encephalopathy; N30.01 Acute cystitis with hematuria; E87.0 Hyperosmolality and hypernatremia; F84.0 Autistic disorder; Z20.822 Contact with and (suspected) exposure to COVID-19; F31.9 Bipolar disorder, unspecified; E78.00 Pure hypercholesterolemia, unspecified; R13.10 Dysphagia, unspecified; E78.5 Hyperlipidemia, unspecified; F79 Unspecified intellectual disabilities; B95.8 Unspecified staphylococcus as the cause of diseases classified elsewhere; T43.595A Adverse effect of other antipsychotics and neuroleptics, initial encounter; Z87.442 Personal history of urinary calculi; Y92.89 Other specified places as the place of occurrence of the external cause

== ENCOUNTER 2021-07-24 11:13 | Inpatient (IN) | payer MEDICARE, MEDICAID ==
[~2021-07-24] VITALS: Ht 162.6 cm; Wt 49.9 kg
[~2021-07-24 11:13] MED LIST changes: +BENZTROPINE MES1 MG PO; +FAMOTIDINE 20 M20 MG PO; +LAMOTRIGINE250 MG PO; +LITHIUM CARBON300 M6 PO; +LOPERAMIDE 2 MG2 M1 PO; +SEROQUEL 50 MG50 M1 PO
[2021-07-24 12:20] LABS: URINE BILIRUBIN NEGATIVE (Negative); URINE BLOOD 3+ (Negative); URINE CLARITY CLEAR; URINE COLOR YELLOW; URINE GLUCOSE-RANDOM NEGATIVE (Negative); URINE KETONES TRACE (Negative); URINE LEUKOCYTES-REFLEX NEGATIVE (Negative); URINE NITRITE-REFLEX NEGATIVE (Negative); URINE PROTEIN TRACE (Negative); URINE UROBILINOGEN 0.2 E.U./dl (0.2-1.0)
[2021-07-24 12:22] LABS: HEMATOCRIT 32.8 % (37.0-47.0); HEMOGLOBIN 10.9 gm/dL (12.0-15.0); MCH 33.9 pg (26.0-34.0); MCHC 33.2 g/dL (28.0-37.0); MCV 101.9 fL (80.0-100.0); MPV 8.6 fl. (7.2-11.1); NUCLEATED RBCS 0 /100WBC; PLATELET COUNT* 168 thou/uL (150-400); RBC 3.22 mil/uL (4.20-5.00); RDW-CV 13.9 % (10.5-14.5); WBC 7.3 thou/uL (4.0-11.0)
[2021-07-24 12:32] LABS: CREATININE 0.6 mg/dL (0.6-1.3); POTASSIUM 3.4 mmol/L (3.5-5.1)
[2021-07-24 12:42] LABS: CASTS None Seen /LPF (None Seen); CRYSTALS None Seen /LPF (None Seen); MUCUS 4-6 Moderate strn/LPF (None Seen); SQUAMOUS 4-10 Moderate /LPF (0-3); URINE WBC-REFLEX 0-5 Rare /HPF (0-5)
[2021-07-24 12:42] LABS: ALBUMIN 3.4 g/dL (3.4-5.0); TOTAL BILIRUBIN 0.1 mg/dL (<0.1-1.0); TOTAL PROTEIN 6.8 g/dL (6.4-8.2)
--- NOTE | 2021-07-24 13:05 | NUR ---
PT'S GRANDPA STATES THAT THE PATIENT HAS HAD A HARD TIME EATING AND DRINKING LATELY. THE PATIENT HAS BEEN CHOKING ON FOOD AND DRINKS WELL GAGGING ON PO MEDICATIONS.
[2021-07-24 13:18] LABS: ABSOLUTE EOSINOPHILS 0.9 thou/uL (0.0-0.7); ABSOLUTE LYMPHOCYTES 2.8 thou/uL (0.8-5.3); ABSOLUTE MONOCYTES 0.4 thou/uL (0.0-1.2); ABSOLUTE NEUTROPHILS 3.2 thou/uL (1.6-8.1); PLATELET ESTIMATE ADEQUATE
[2021-07-24 13:19] LABS: ANISOCYTOSIS 1+; POIKILOCYTOSIS 1+
--- NOTE | 2021-07-24 17:51 | EKG ---
[place] [address] ELECTROCARDIOGRAM REPORT Name: EVELINA ANAYA Room: [place] [address] ADM IN .R.#: [id number] Admission: 07/24/21 Attend Phys: Ko Morrison Discharge: Date of : 84 Date of Service: 07/24/21 1202 Report #: [id number] THIS REPORT FOR: //name// [facility] ED Test Date: 2021-07-24 Test Time: 12:02:25 Pat Name: EVELINA HÉCTOR Department: Room: [facility] Gender: F Timber Setter: NATHALIE : 1980 Requested By: Ivan Baptiste Order Number: [id number] MD: Russ Seaman Measurements Intervals [place] Rate: 71 P: 17 [place]: 152 QRS: 67 QRSD: 83 T: 52 QT: 408 QTc: 444 Interpretive Statements Sinus rhythm Borderline T wave abnormalities Compared to ECG 07/04/2021 14:07:41 Ectopic atrial rhythm no longer present Prolonged QT interval no longer present T-wave abnormality still present Electronically Signed On 07-24-2021 17:50:49 CDT by Russ Seaman [email or web address] <ELECTRONICALLY SIGNED> By: Russ Seaman MD, [facility] 07/24/21 1750 1202 1202 Russ Seaman MD, [facility] /EPI
--- NOTE | 2021-07-24 18:11 | NUR ---
PT'S DAD, DEBORAH, IS LEAVING FOR THE DAY AND IS REQUESTING A PHONE CALL ONCE THE PATIENT GOES TO AN INPATIENT ROOM. [phone]. DEBORAH APPEARS AGITATED THAT THE PATIENT IS NOT IN AN INPATIENT ROOM YET AND IS SPEAKING WITH ER PHYSICIAN ABOUT WHY "NOTHING IS BEING DONE" THE ER PHYSICIAN AND THIS RN EXPLAINED TO THE PATIENT'S FATHER THAT THERE ARE NOT YET ANY FINDING TO WHY THE PATIENT IS HAVING TROUBLE WALKING. LAB WORK AND URINE SAMPLE HAVE BEEN COLLECTED. THE PATIENT'S VITAL SIGNS ARE STABLE AND SHE IS RESTING IN BED.
--- NOTE | 2021-07-24 19:47 | NUR ---
PT THROWING BEDSIDE TABLE ON THE GROUND, THROWING FOOD AND SODA ON THE GROUND. PT IS YELLING BUT NOT SAYING ANY WORDS. PT RE-ADJUSTED FOR COMFORT, PROVIDED ANOTHER BLANKET AND DRINK. WILL CONTINUE TO MONITOR. CALL LIGHT WITHIN REACH, BED IN THE LOWEST POSITION.
[2021-07-24 21:35] VITALS: BP 120/84
[2021-07-24 22:11] VITALS: BP 139/76
--- NOTE | 2021-07-24 23:00 | NUR ---
ALERT AND ORIENTED X 1-2 FEMALE PATIENT WITH HX OF MR AND AUTISM TO ROOM 201 IN STABLE CONDITION AT 2135. FALL PRECAUTIONS IN PLACE. ADMISSION ROUTINES IN PROGRESS. PATIENT USED BEDPAN ON ARRIVAL WITH MOD BM AND VOID. PHOTOS OF HEALING WOUNDS ON BILAT HANDS. ASSISTED WITH REQUESTED SODA AND SHERBET FOR HS SNACK. UNABLE TO COMPLETE ADMISSION HISTORY OR ASSESSMENT DUE TO PATIENT'S COGNATIVE STATUS. CONTINUE TO MONITOR.
[2021-07-25 00:06] VITALS: BP 113/56
--- NOTE | 2021-07-25 04:17 | NUR ---
PATIENT HAS REMAINED ALERT AND ORIENTED X 1-3 FROM ARRIVAL. REMEMBERS THIS NURSES NAME AND HAS BEEN CALLING IT OUT WITH APPROPRIATE REQUESTS SUCH BR OR SNACKS. AWAKE UNTIL 0400. DRINKING WELL FROM A STRAW. CONTINENT OF BOTH BOWEL AND BLADDER. VITAL SIGNS STABLE. FALL PRECAUTIONS IN PLACE. CONTINUE TO MONITOR.
[2021-07-25 07:58] LABS: ABSOLUTE BASOPHILS 0.1 thou/uL (0.0-0.2); ABSOLUTE EOSINOPHILS 1.5 thou/uL (0.0-0.7); ABSOLUTE LYMPHOCYTES 2.4 thou/uL (0.8-5.3); ABSOLUTE MONOCYTES 0.6 thou/uL (0.0-1.2); BASOPHILS 0.8 %; EOSINOPHILS 23.2 %; HEMATOCRIT 31.9 % (37.0-47.0); HEMOGLOBIN 10.7 gm/dL (12.0-15.0); LYMPHOCYTES 36.2 %; MCH 33.7 pg (26.0-34.0); MCHC 33.5 g/dL (28.0-37.0); MCV 100.6 fL (80.0-100.0); MONOCYTES 9.1 %; MPV 8.8 fl. (7.2-11.1); NUCLEATED RBCS 0 /100WBC; PLATELET COUNT* 177 thou/uL (150-400); POLYS 30.7 %; RBC 3.17 mil/uL (4.20-5.00); RDW-CV 13.5 % (10.5-14.5); WBC 6.7 thou/uL (4.0-11.0)
[2021-07-25 08:00] VITALS: BP 121/75
[2021-07-25 08:30] LABS: ALBUMIN 2.9 g/dL (3.4-5.0); CALCIUM 8.3 mg/dL (8.5-10.1); CREATININE 0.6 mg/dL (0.6-1.3); POTASSIUM 3.6 mmol/L (3.5-5.1); TOTAL BILIRUBIN 0.1 mg/dL (<0.1-1.0); TOTAL PROTEIN 6.1 g/dL (6.4-8.2)
--- NOTE | 2021-07-25 10:41 | NUR ---
The patient is alert. Able to make most needs known. Call light within reach. SR on the monitor.
[2021-07-25 11:39] VITALS: BP 122/66
--- NOTE | 2021-07-25 13:40 | NUR ---
Pt known to this CM from previous hospital stay. Pt was dc to skilled at the end of June. Pt normally resides at [facility] with 24/7 caregivers. Pt is ambulatory. No DME. No hx of HH. Supportive parents. Anticipate dc later today or tomorrow back to [facility]idential.
[2021-07-25 16:54] VITALS: BP 98/57
--- NOTE | 2021-07-25 19:36 | NUR ---
1930 She was found on the floor. No imjuires noted. Jaime(dad) informed of the fall. No questiond voiced. aware. She was placed in the bed. Bed alarm on.
[2021-07-25 19:39] VITALS: BP 116/79
[2021-07-25 19:55] VITALS: BP 135/66
[2021-07-26] VITALS (7 sets, daily range): BP systolic 103–126; BP diastolic 60–79
--- NOTE | 2021-07-26 01:03 | NUR ---
ASSUMED CARE OF PT AT 1930. PT IS CONFUSED. VSS. ORELLANA. NO COMPLAINTS OF PAIN. ROOM AIR. PT IS IN A FIB ON THE TELEMETRY. PT IS RESTING COMFORTABLY IN BED. RESPIRATIONS ARE EVEN AND NONLABORED. WILL CONTINUE TO MONITOR PT.
[2021-07-26 04:14] LABS: HEMATOCRIT 36.3 % (37.0-47.0); HEMOGLOBIN 11.8 gm/dL (12.0-15.0); MCH 33.1 pg (26.0-34.0); MCHC 32.5 g/dL (28.0-37.0); MCV 101.7 fL (80.0-100.0); MPV 9.1 fl. (7.2-11.1); RBC 3.56 mil/uL (4.20-5.00); RDW-CV 13.6 % (10.5-14.5); WBC 8.4 thou/uL (4.0-11.0)
[2021-07-26 05:38] LABS: CALCIUM 9.4 mg/dL (8.5-10.1); CREATININE 0.5 mg/dL (0.6-1.3); POTASSIUM 3.9 mmol/L (3.5-5.1)
--- NOTE | 2021-07-26 16:11 | NUR ---
PT REMAINED ALERT AND ORIENTED TO SELF. PT VERY DROWSY THIS SHIFT. EGD TOMORROW PER DR. HASTINGS AFTER TALKING WITH DR. ROLLINS. NPO AFTER MIDNIGHT. FALL RISK PRECAUTIONS IN PLACE. HOURLY ROUNDIG COMPLETED. CALL LIGHT WITHIN REACH.
[2021-07-27] VITALS (7 sets, daily range): BP systolic 101–127; BP diastolic 58–80
[2021-07-27 04:40] LABS: HEMATOCRIT 34.6 % (37.0-47.0); HEMOGLOBIN 11.7 gm/dL (12.0-15.0); MCH 34.5 pg (26.0-34.0); MCHC 33.9 g/dL (28.0-37.0); MCV 101.9 fL (80.0-100.0); RBC 3.39 mil/uL (4.20-5.00); RDW-CV 14.1 % (10.5-14.5); WBC 9.9 thou/uL (4.0-11.0)
[2021-07-27 04:49] LABS: CALCIUM 9.3 mg/dL (8.5-10.1); CREATININE 0.8 mg/dL (0.6-1.3); POTASSIUM 3.7 mmol/L (3.5-5.1)
--- NOTE | 2021-07-27 15:28 | NUR ---
EGD tomorrow. Plan dc back to [facility] tomorrow.
--- NOTE | 2021-07-27 15:58 | EKG ---
[place] [address] ELECTROCARDIOGRAM REPORT Name: EVELINA ANAYA Room: [address] IN M.R.#: [id number] Admission: 07/24/21 Attend Phys: Ko Morrison Discharge: Date of : 84 Date of Service: 07/27/21 1456 Report #: [id number] THIS REPORT FOR: //name// [facility] Test Date: 2021-07-27 Test Time: 14:56:00 Pat Name: EVELINA ANAYA Department: Room: [address] Gender: F Floor Inspector: SOL : 1980 Requested By: Mari James Order Number: [id number] Reading MD: Hair Joseph Measurements Intervals [place] Rate: 82 P: 10 UT: 168 QRS: 32 QRSD: 88 T: 62 QT: 369 QTc: 431 Interpretive Statements Sinus rhythm Low voltage, precordial leads Borderline T wave abnormalities Compared to ECG 07/24/2021 12:02:25 Low QRS voltage now present T-wave abnormality still present Electronically Signed On 07-27-2021 15:58:13 CDT by Hair Joseph [email or web address] <ELECTRONICALLY SIGNED> By: Hair Joseph MD, [facility] 07/27/21 1558 1456 1456 Hair Joseph MD, [facility] /EPI
[2021-07-28 02:30] VITALS: BP 100/62
[2021-07-28 05:49] VITALS: BP 102/67
[2021-07-28 06:14] LABS: CALCIUM 9.5 mg/dL (8.5-10.1); CREATININE 0.7 mg/dL (0.6-1.3); POTASSIUM 4.1 mmol/L (3.5-5.1)
[2021-07-28 06:31] LABS: HEMATOCRIT 33.9 % (37.0-47.0); HEMOGLOBIN 11.3 gm/dL (12.0-15.0); MCH 33.4 pg (26.0-34.0); MCHC 33.3 g/dL (28.0-37.0); MCV 100.1 fL (80.0-100.0); MPV 9.1 fl. (7.2-11.1); RBC 3.39 mil/uL (4.20-5.00); RDW-CV 13.7 % (10.5-14.5); WBC 7.4 thou/uL (4.0-11.0)
[2021-07-28 09:00] VITALS: BP 118/70
--- NOTE | 2021-07-28 10:42 | NUR ---
1041-RETURNED FROM OR FOR EGD,AWAKE AND ALERT NO C/O PAIN. VSS.
--- NOTE | 2021-07-28 10:43 | NUR ---
0845-PT TO OR FOR EGD,DANETTEO. WILL OBTAIN CONSENT FROM HER FATHER IN [place].
[2021-07-28 10:44] VITALS: BP 113/71
[2021-07-28 14:01] VITALS: BP 103/60
== END 2021-07-28 15:33 | disposition home or self-care (01) | DRG 640 ==
LOC: M.ERS 11:13 → M.2W 12:44 → M.TBA-ER 12:44 → M.2W 21:36
PROVIDERS: Family Medicine; Internal Medicine; ADMIT Internal Medicine; ATTEND Internal Medicine
PROC: 0D758ZZ Dilation of Esophagus, Via Natural or Artificial Opening Endoscopic (ICD-10-PCS; principal; 2021-07-28)
DX: E86.0 Dehydration (principal); J12.89 Other viral pneumonia; E43 Unspecified severe protein-calorie malnutrition; N39.0 Urinary tract infection, site not specified; Z68.1 Body mass index [BMI] 19.9 or less, adult; E87.0 Hyperosmolality and hypernatremia; F31.9 Bipolar disorder, unspecified; E78.00 Pure hypercholesterolemia, unspecified; E87.6 Hypokalemia; E78.5 Hyperlipidemia, unspecified; I34.0 Nonrheumatic mitral (valve) insufficiency; R13.10 Dysphagia, unspecified; K22.2 Esophageal obstruction; Z20.822 Contact with and (suspected) exposure to COVID-19; Z87.442 Personal history of urinary calculi; Z79.899 Other long term (current) drug therapy